=== PATIENT | male | born 2005 | race Caucasian/White ===

== ENCOUNTER 2025-06-26 17:50 | Emergency (ER) | payer OTHER, SELFPAY ==
[2025-06-26 17:52] VITALS: BP 131/82
--- NOTE | 2025-06-26 20:33 | ED.GENMED ---
History of Present Illness
General
Chief Complaint: Musculo-Skeletal Complaint
Source: patient
Exam Limitations: none
Time Seen by Provider: 06/26/25 19:48
Nursing documentation reviewed up to this point in time: agreed with
History of Present Illness
History of Present Illness:
19-year-old male presenting to the emergency department today with concerns of left thumb discomfort over the past 2 months or so denies any specific injuries. Denies any obvious swelling redness warmth or additional concerns.
Review of Systems
Review of Systems
Allergies reviewed?: Yes
All Other Systems: ROS reviewed and negative except as documented in HPI and ROS
Phy Exam
Physical Exam
Physical Exam:
GENERAL: Alert , in no apparent distress
EYE: pupils equal and reactive
NECK: Supple, no significant adenopathy.
ENT: o/p clr, mmm.
CARDIAC: Regular rate and rhythm .
LUNGS: Clear breath sounds bilaterally, no acute respiratory distress, no wheezes/rales/rhonchi
ABDOMEN: Soft, without focal tenderness, no r/g, no cvat
NEUROLOGICAL: Alert and oriented, no focal neuro deficits
SKIN: Warm and dry, skin intact.
MUSCULOSKELETAL: Discomfort to the left base of the thumb specifically worse with Anne test no edema, well perfused.
PSYCH: Normal and appropriate interaction.
Course
Orders/Labs/Results
Orders:
Orders
06/26/25 17:58
Finger(s)/Thumb 2 View Lt [CR Finger(s)/thumb Min 2 Vw Lt] Urgent
Comment:
Reason For Exam: pain to left thumb radiates to left wrist
Indicate Which Finger:: Thumb
Wrist, Left 3 Views CR [CR Wrist - Left Min 3 Views] Urgent
Comment:
Reason For Exam: pain to left thumb radiates to left wrist
Vital Signs
Initial and Last Documented VS:
Initial Vital Signs
Temp Pulse Resp BP Pulse Ox
98.8 F 60 18 131/82 100
06/26/25 17:52 06/26/25 17:52 06/26/25 17:52 06/26/25 17:52 06/26/25 17:52
Last Documented Vital Signs
Temp Pulse Resp BP Pulse Ox
98.8 F 60 18 131/82 100
06/26/25 17:52 06/26/25 17:52 06/26/25 17:52 06/26/25 17:52 06/26/25 17:52
MDM/Problems Addressed
MDM/Problems Addressed:
19-year-old male presenting to the emergency department today with concerns of thumb discomfort left hand. 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 Here he had a positive Anne test consistent with de Quervain's
tenosynovitis. Plan for thumb spica splint icing and close outpatient follow-up as needed. Return precautions given.
*Pulse Oximetry
SaO2: 100
Oxygen Mode of Delivery: Room air
Patient hypoxic: no (100)
*Critical Care Note
Total Time (30-74mins, 75-104mins- exclusive of procedures): Not Applicable
ED Attending Note
-
Portions of this chart may have been created with voice recognition software.� Occasional wrong word or��sound alike� substitutions may have occurred due to the inherent limitations of voice recognition software.
Discharge Plan
Departure
Patient Disposition: Home (Routine Discharge)
Date of Disposition: 06/26/25
Time of Disposition: 20:34
Patient with high blood pressure during this ER visit?: No
Condition: Good
Covid-19: Not Applicable
Discharge Problem:
De Quervain's tenosynovitis
Instructions: de Quervain tendinopathy
Prescriptions:
New
naproxen sodium 550 mg tablet
550 mg PO Q12H PRN (Reason: Pain) 14 Days Qty: 20 0RF
Referrals:
Harriet Jama PA [Family Provider, Family Practice]
Kit Urbano MD [Active, Orthopedics] - Follow up in 5-7 days
Activity Restrictions/Additional Instructions:
You came to the emergency department today with concerns of thumb discomfort. This likely is a sprain or tendinopathy. Please follow closely with orthopedics and wear the splint to help with symptoms. Return for any worsening, new or concerning
symptoms.
Interventions
Interventions:
*Risk Screen - Suicide Last Done: 06/26/25 17:57
*Neglect/Abuse Screening Last Done: 06/26/25 17:57
Discharge Date and Time
Print Language: BENGALI
== END 2025-06-26 20:57 | disposition home or self-care (01) ==
LOC: EMR 17:50
PROVIDERS: EMERGENCY PHYSICIAN Emergency Medicine; FAMILY PHYSICIAN Physician Assistant Medical
DX: M65.4 Radial styloid tenosynovitis [de Quervain] (principal)
CPT/HCPCS: 99283; 73110; 73140